=== PATIENT | male | born 1955 | race Caucasian/White ===

== ENCOUNTER 2018-11-16 11:09 | Emergency (ER) | payer OTHER, BC ==
[2018-11-16] MEDS ORDERED: Nitroglycerin 0.4 MG TAB 1 EACH ONE (11:43)
[2018-11-16] MEDS ORDERED: Aspirin 325 MG TAB ONE (11:43)
[2018-11-16 12:18] LABS: #Eosinphils 0.1 thou/uL (0.0-0.7); #Lymphocytes 1.3 thou/uL (1.20-3.40); #Monocytes 0.3 thou/uL (0.11-0.59); #Neutrophils 3.5 thou/uL (1.40-6.50); %Basophils 0.4 % (0.0-1.0); %Eosinophils 1.5 % (0.0-10.0); %Lymphocytes 24.3 % (21.0-51.0); %Monocytes 6.3 % (0.0-10.0); %Neutrophils 67.5 % (42.0-75.0); Hemoglobin 10.4 g/dL (14.0-18.0); Mean Corpuscular HGB CONC 35.8 g/dL (32.0-36.0); Mean Corpuscular Hemoglobin 32.4 pg (27.0-31.0); Mean Corpuscular Volume 90.6 fL (78.0-98.0); Mean Platelet Volume 7.4 fL (7.4-10.4); Platelet Count 217 thou/uL (130-400); RBC Distribution Width 11.6 % (11.5-14.5); Red Blood Cell (RBC) Count 3.21 mill/uL (4.70-6.10); White Blood Cell (WBC) Count 5.2 thou/uL (4.8-10.8)
[2018-11-16 12:53] LABS: ALT (SGPT) 12 U/L (8-55); AST (SGOT) 13 U/L (5-34); Albumin 4.3 g/dL (3.4-4.8); Alkaline Phosphatase 45 U/L (40-150); Anion Gap 12 mmol/L (10-20); BUN (Urea Nitrogen) 28 mg/dL (8.4-25.7); Bilirubin, Total 0.4 mg/dL (0.2-1.2); Calc. Creatinine Clearance 0 mL/min (70-130); Calcium 9.4 mg/dL (7.8-10.44); Carbon Dioxide 27 mmol/L (23-31); Chloride 103 mmol/L (98-107); Estimated GFR-MDRD 65; Globulin 2.2 g/dL (2.4-3.5); Glucose 124 mg/dL (80-115); Potassium 4.4 mmol/L (3.5-5.1); Protein, Total 6.5 g/dL (5.8-8.1); Sodium 138 mmol/L (136-145)
--- NOTE | 2018-11-16 13:42 | RAD ---
FRONTAL VIEW CHEST: 11/16/18 COMPARISON: None available. INDICATION: New onset chest pain. FINDINGS: There is accentuation of the cardiac silhouette and pulmonary parenchymal structures due to shallow d epth of inspiration. No obvious consolidation or significant effusion identified. There is no discret e pneumothorax. Leads overlying the chest limiting visualization. IMPRESSION: Shallow depth of inspiration which accentuates the pulmonary parenchymal structures as well as the ca rdiac silhouette. If there is persistent clinical concern, follow-up may be obtained with dedicated two view chest as i ndicated. POS: [facility]
[2018-11-16 15:31] LABS: Troponin I Less than 0.010 ng/mL (< 0.028)
[2018-11-16 18:40] LABS: Troponin I Less than 0.010 ng/mL (< 0.028)
--- NOTE | 2018-11-20 13:12 | EKG ---
Test Reason : Blood Pressure : / mmHG Vent. Rate : 076 BPM Atrial Rate : 076 BPM P-R Int : 152 ms QRS Dur : 098 ms QT Int : 386 ms P-R-T Axes : 032 -23 032 degrees QTc Int : 434 ms Normal sinus rhythm Normal ECG Confirmed by GARRETT MORA ([id number]), assignment editor STEPHANIE MENDIETA ([id number]) on 11/20/2018 1:12:34 PM Referred By: Confirmed By:GRARETT MORA
--- NOTE | 2018-11-20 15:07 | EKG ---
Test Reason : Blood Pressure : / mmHG Vent. Rate : 079 BPM Atrial Rate : 079 BPM P-R Int : 152 ms QRS Dur : 094 ms QT Int : 372 ms P-R-T Axes : 062 -40 039 degrees QTc Int : 426 ms Normal sinus rhythm Left axis deviation Abnormal ECG Confirmed by HOMERO HIGHTOWER DO ([id number]), film and video editor STEPHANIE MENDIETA ([id number]) on 11/20/2018 3:07:27 PM Referred By: Confirmed By:HOMERO HIGHTOWER DO
--- NOTE | 2018-11-20 15:08 | EKG ---
Test Reason : Blood Pressure : / mmHG Vent. Rate : 070 BPM Atrial Rate : 070 BPM P-R Int : 150 ms QRS Dur : 098 ms QT Int : 398 ms P-R-T Axes : 024 -27 021 degrees QTc Int : 429 ms Normal sinus rhythm Normal ECG Confirmed by HOMERO HIGHTOWER DO ([id number]), industrial editor STEPHANIE MENDIETA ([id number]) on 11/20/2018 3:08:07 PM Referred By: Confirmed By:HOMERO HIGHTOWER DO
== END 2018-11-16 21:42 ==
LOC: ERS 11:09
DX: R07.89 Other chest pain (principal); E11.9 Type 2 diabetes mellitus without complications; I25.10 Atherosclerotic heart disease of native coronary artery without angina pectoris; Z79.84 Long term (current) use of oral hypoglycemic drugs; Z79.899 Other long term (current) drug therapy
CPT/HCPCS: 36415; 71045; 80053; 84484; 85025; 93005; 94760; 96360